=== PATIENT | female | born 1935 | race African-American/Black ===

== ENCOUNTER 2017-04-21 18:53 | Observation (INO) | payer MEDICARE ==
[~2017-04-21] VITALS: Ht 157.5 cm; Wt 41.7 kg
[2017-04-21 19:10] VITALS: BP 162/85
[2017-04-21] MEDS ORDERED: Acetaminophen 650 MG SUPP RECTAL ONE (19:30)
[2017-04-21 19:53] LABS: APPEARANCE,URINE CLEAR; KETONES,URINE NEGATIVE (NEGATIVE); LEUKOCYTE ESTERASE ,URINE 1+ (NEGATIVE); NITRITE,URINE NEGATIVE (NEGATIVE); PH,URINE 7 (4.5-8.0); PROTEIN,URINE NEGATIVE (NEGATIVE); UROBILINOGEN,URINE NORMAL MG/DL (0.0-1.0)
[2017-04-21 20:10] LABS: AMORPHOUS SEDIMENT,UR FEW /LPF; BACTERIA,URINE FEW /HPF; RBC,URINE 0-2 /HPF (0 - 2); SQUAMOUS EPITHELIAL CELL,UR FEW /LPF (NONE/OCC)
[2017-04-21 21:00] VITALS: BP 161/79
[2017-04-21 21:24] LABS: BASOPHILS % (AUTO) 0.5 % (0.0-2.0); EOSINOPHILS % (AUTO) 0.2 % (0.0-3.0); LYMPHOCYTES % (AUTO) 10.8 % (20.0-45.0); MEAN CORPUSCULAR HEMOGLOBIN 28.8 PG (27.0-31.0); MEAN CORPUSCULAR HGB CONC 30.9 G/DL (32.0-36.0); MEAN CORPUSCULAR VOLUME 93 FL (80-99); MEAN PLATELET VOLUME 7.8 FL (6.5-10.1); MONOCYTES % (AUTO) 5.9 % (1.0-10.0); NEUTROPHILS % (AUTO) 82.6 % (45.0-75.0); PLATELET COUNT 189 K/UL (150-450); RED BLOOD COUNT 4.84 M/UL (4.20-5.40); RED CELL DISTRIBUTION WIDTH 13.5 % (11.6-14.8); WHITE BLOOD COUNT 6.7 K/UL (4.8-10.8)
[2017-04-21 21:34] LABS: TROPONIN I < 0.30 ng/mL (<=0.30)
[2017-04-21 21:48] LABS: ALANINE AMINOTRANSFERASE 11 U/L (3-33); ALBUMIN/GLOBULIN RATIO 0.9 (1.0-2.7); ANION GAP 17 (5-15); ASPARTATE AMINO TRANSFERASE 27 U/L (5-40); CALCIUM 9.9 mg/dL (8.6-10.2); CARBON DIOXIDE 22 mEQ/L (20-30); CHLORIDE 98 mEQ/L (98-107); CREATININE 0.5 mg/dL (0.5-0.9); HEMOLYSIS 84; POTASSIUM 4.4 mEQ/L (3.4-4.9); SODIUM 137 mEQ/L (135-145); TOTAL PROTEIN 7.6 g/dL (6.6-8.7)
[2017-04-21 21:55] LABS: CKMB 5.9 ng/mL (< 3.8)
--- NOTE | 2017-04-21 22:51 | Emergency Room Report ---
History of Present Illness General Chief Complaint: Altered Level of Consciousness Source: Family Member, EMS Present Illness HPI 81-year-old female presents ED for evaluation. Per EMS patient comes from home or altered the usual since this morning. Niece called on to state that patient was last seen normal last night. Patient does have dementia. Patient does have low-grade fever of 100.8. No signs of distress. Patient is unable to provide any additional history at this time. No other aggravating relieving factors. No other associated symptoms Allergies: Coded Allergies: No Known Allergies (Unverified , 04/21/17) Patient History Past Medical History: dementia Past Surgical History: none Pertinent Family History: none Social History: Denies: smoking, alcohol use, drug use Now: No Immunizations: UTD Reviewed Nursing Documentation: PMH: Agreed, PSxH: Agreed Nursing Documentation-PMH History Of Psychiatric Problem: Yes - ALZHEIMERS Review of Systems All Other Systems: negative except mentioned in HPI Physical Exam Vital Signs Date Time Temp Pulse Resp B/P (MAP) Pulse Ox O2 Delivery O2 Flow Rate FiO2 04/21/17 19:00 100.8 93 22 162/85 97 Room Air Sp02 EP Interpretation: reviewed, normal General Appearance: no apparent distress, lethargic Head: normocephalic Eyes: bilateral eye normal inspection, bilateral eye PERRL ENT: normal ENT inspection Neck: normal inspection Respiratory: chest non-tender, lungs clear, normal breath sounds, speaking full sentences Cardiovascular #1: regular rate, rhythm, no edema Gastrointestinal: normal bowel sounds, non tender, soft, non-distended, no guarding, no rebound Rectal: deferred Genitourinary: no CVA tenderness Musculoskeletal: normal inspection Neurologic: other - lethargic Psychiatric: other - lethargic Skin: normal inspection Lymphatic: normal inspection Medical Decision Making Diagnostic Impression: Primary Impression: CVA (cerebral vascular accident) Qualified Codes: I63.9 - Cerebral infarction, unspecified Additional Impression: Altered level of consciousness ER Course Hospital Course 81-year-old female presents to ED with altered mental status times one day. History of dementia Differential diagnoses include: GA/unstable angina, UTI, sepsis CVA/TIA Clinical course Patient placed on stretcher. on electronic device monitor. After initial history and physical I ordered labs, EKG, chest x-ray, and CT head labs reviewed- electrolytes ok, troponins negative, no leukocytosis, Hb/Hct stable, UA negative EKG - NSR, no acute changes interpretd by me Chest x-ray- no acute process CT brain - right posterior parietal lobe subacute CVA Given aspirin in ED. I discussed findings with the family. Patient is out of window for thrombolytic therapy and is DO NOT RESUSCITATE, comfort care patient will be admitted to Dr Dougherty. I. I feel this is a highly complex case requiring extensive working including EKG/Rhythm strip, Xray/CT/US, Blood/urine lab work, repeat exams while in ED, and administration of strong opiates/narcotics for pain control, admission to hospital or close patient follow up. Diagnosis - CVA, ALOC admitted to telemetry in serious condition Labs Test 04/21/17 19:30 04/21/17 21:00 Urine Color Pale yellow Urine Appearance Clear Urine pH 7 (4.5-8.0) Urine Specific Fries 1.010 (1.005-1.035) Urine Protein Negative (NEGATIVE) Urine Glucose (UA) 2+ (NEGATIVE) Urine Ketones Negative (NEGATIVE) Urine Occult Blood Negative (NEGATIVE) Urine Nitrite Negative (NEGATIVE) Urine Bilirubin Negative (NEGATIVE) Urine Urobilinogen Normal MG/DL (0.0-1.0) Urine Leukocyte Esterase 1+ (NEGATIVE) Urine RBC 0-2 /HPF (0 - 2) Urine WBC 2-4 /HPF (0 - 2) Urine Squamous Epithelial Cells Few /LPF (NONE/OCC) Urine Amorphous Sediment Few /LPF (NONE) Urine Bacteria Few /HPF (NONE) White Blood Count 6.7 K/UL (4.8-10.8) Red Blood Count 4.84 M/UL (4.20-5.40) Hemoglobin 13.9 G/DL (12.0-16.0) Hematocrit 45.0 % (37.0-47.0) Mean Corpuscular Volume 93 FL (80-99) Mean Corpuscular Hemoglobin 28.8 PG (27.0-31.0) Mean Corpuscular Hemoglobin Concent 30.9 G/DL (32.0-36.0) Red Cell Distribution Width 13.5 % (11.6-14.8) Platelet Count 189 K/UL (150-450) Mean Platelet Volume 7.8 FL (6.5-10.1) Neutrophils (%) (Auto) 82.6 % (45.0-75.0) Lymphocytes (%) (Auto) 10.8 % (20.0-45.0) Monocytes (%) (Auto) 5.9 % (1.0-10.0) Eosinophils (%) (Auto) 0.2 % (0.0-3.0) Basophils (%) (Auto) 0.5 % (0.0-2.0) Sodium Level 137 mEQ/L (135-145) Potassium Level 4.4 mEQ/L (3.4-4.9) Chloride Level 98 mEQ/L (98-107) Carbon Dioxide Level 22 mEQ/L (20-30) Anion Gap 17 (5-15) Blood Urea Nitrogen 7 mg/dL (7-23) Creatinine 0.5 mg/dL (0.5-0.9) Estimat Glomerular Filtration Rate mL/min (>60) Glucose Level 157 mg/dL (74-106) Lactic Acid Level 1.90 mmol/L (0.66-2.22) Calcium Level 9.9 mg/dL (8.6-10.2) Total Bilirubin 0.4 mg/dL (0.0-1.2) Aspartate Amino Transf (AST/SGOT) 27 U/L (5-40) Alanine Aminotransferase (ALT/SGPT) 11 U/L (3-33) Alkaline Phosphatase 63 U/L (35-104) Total Creatine Kinase 373 U/L (26-140) Creatine Kinase MB 5.9 ng/mL (< 3.8) Creatine Kinase MB Relative Index 1.5 Troponin I < 0.30 ng/mL (<=0.30) Pro-B-Type Natriuretic Peptide 326 pg/mL (0-450) Total Protein 7.6 g/dL (6.6-8.7) Albumin 3.7 g/dL (3.5-5.2) Globulin 3.9 g/dL Albumin/Globulin Ratio 0.9 (1.0-2.7) EKG Diagnostic Results Rate: normal Rhythm: NSR ST Segments: no acute changes ASA given to the pt in ED: Yes Rhythm Strip Diag. Results EP Interpretation: yes Rhythm: NSR, no PVC's, no ectopy Chest X-Ray Diagnostic Results Chest X-Ray Diagnostic Results : Chest X-Ray Ordered: Yes # of Views/Limited/Complete: 1 View Indication: Other - ams EP Interpretation: Yes Interpretation: no consolidation, no effusion, no pneumothorax, no acute cardiopulmonary disease Impression: No acute disease Electronically Signed by: Electronically signed by Erick Stern MD CT/MRI/US Diagnostic Results CT/MRI/US Diagnostic Results : Imaging Test Ordered: CT head Impression Subacute CVA right posterior parietal lobe. Last Vital Signs Date Time Temp Pulse Resp B/P (MAP) Pulse Ox O2 Delivery O2 Flow Rate FiO2 04/21/17 19:10 100.8 22 162/85 97 Room Air 04/21/17 19:00 93 Status: improved Disposition: ADMITTED INPATIENT Condition: Serious Referrals: [facility],REFERRING (PCP) ERICK STERN M.D. Apr 21, 2017 22:51
[2017-04-21 23:07] VITALS: BP 154/83
[2017-04-21] MEDS ORDERED: QUETIAPINE FUMA25 MG ORAL (23:31)
[2017-04-22] VITALS: BP 136/64
[2017-04-22] MEDS ORDERED: cefTRIAXone 1 GM in D5W 55 ML IVPB SCH (00:15)
[2017-04-22 04:00] VITALS: BP 127/68
[2017-04-22] MEDS ORDERED: ASPIRIN-LOW81 MG ORAL (08:10)
[2017-04-22] MEDS ORDERED: BACTRIM DS TAB1 EAC1 ORAL (08:10)
[2017-04-22 08:45] VITALS: BP 120/77
--- NOTE | 2017-04-22 08:54 | Diagnostic Imaging Report ---
Indication: Altered mental status Technique: Contiguous 5 mm thick transaxial imaging of the head obtained in a Siemens Sensation [address] scanner. Soft tissue and bone windows generated. Total Dose length Product (DLP): [address] Dose Index Volume (CTDIvol): 70.38, 0.15 mGy Comparison: none Findings: There is an area of abnormal low attenuation in the right posterior parietal lobe involving the cortex and subcortical white matter. Findings probably represent subacute CVA based on the appearance. Please correlate clinically. There is no acute hemorrhage or mass effect. The lateral ventricles are enlarged disproportionate to the degree of atrophy present which is mild to moderate. Which are considered the possibility of normal pressure hydrocephalus. Please correlate clinically. Low attenuation of periventricular white matter is moderate in degree. The osseous structures are unremarkable. Basal cisterns appear normal. Impression: Subacute CVA suspected in the right posterior parietal lobe. Please correlate clinically. Disproportionate ventriculomegaly with mild to moderate atrophy noted. Normal pressure hydrocephalus or communicating hydrocephalus could be present. Clinical evaluation is recommended. I have communicated the preliminary results to the Emergency Department. 20:14, 04/21/[address] scanner at [facility] is accredited by the [employer] and the scans are performed using dose optimization techniques as appropriate to a performed exam including Automatic Exposure control.
--- NOTE | 2017-04-22 10:45 | Diagnostic Imaging Report ---
Indication: Dyspnea Comparison: None A single view chest radiograph was obtained. Findings: Lungs are clear. Bones are moderately osteopenic. The heart is normal in size. Aorta is moderately tortuous and calcified. Impression: No acute findings
[2017-04-22 12:00] VITALS: BP 116/68
--- NOTE | 2017-04-22 19:30 | History and Physical Report ---
DATE OF ADMISSION: 04/21/2017 History of Present Illness: This is an 81-year-old female who is enrolled under hospice. She was brought to the emergency room when the family, particularly her niece, Georgina Paul, felt that she was less responsive than before. Her baseline is that she is nonverbal at home, but would able to be fed with assistance. Yesterday, she was having difficulty swallowing and the family decided to call hospice. Hospice said it would be a while before somebody could get there, and therefore, the niece, Georgina Paul, at [phone] decided to call paramedics. Paramedics brought her to the emergency room. In the emergency room, it is unclear if details regarding hospice were available and the patient was evaluated by ER physician. She was found to have possibly UTI, but a head CT was also done, which showed a possibility of a subacute CVA. The patient was admitted to the hospital. PAST HISTORY: Cognitive impairment and dementia. SURGERIES: None reported. Medications: In the past, she was taking Seroquel. She is no longer taking it at home. There are no home medications. SOCIAL HISTORY: Lives at home with family, is under hospice. PHYSICAL EXAMINATION: GENERAL: An elderly female. Vital Signs: Blood pressure is 140/80, heart rate is 94, respirations 18 and she is afebrile. T-max here was 100. 8 degrees, she has been afebrile since. HEENT: Unremarkable. CHEST: Clear breath sounds bilaterally. ABDOMEN: Soft. EXTREMITIES: There is no edema. Neurologic: Nonfocal, but poorly cooperative. The patient is mostly nonverbal, only able to say yes to me. Laboratory And Diagnostic Data: Lab testing shows normal CBC and BMP. There are few pus cells seen in urinalysis. CT scan discussed above. IMPRESSION: 1. Possible urinary tract infection. 2. Subacute cerebrovascular accident. 3. Hospice patient. 4. Dementia. Discussion: I had a lengthy discussion with the patient's niece, Georgina Paul. She reinforced the patient as DNR/DNI and under hospice. At this time, after discussion, I have decided to discharge the patient home with empiric treatment of Bactrim as well as addition of aspirin. The patient will be up by family and they will contact hospice for either re-enrollment or resumption of care. Xavier Dougherty M.D. DR: TEZ JOB#: [id number] CC:
--- NOTE | 2017-04-25 07:29 | Discharge Summary ---
Discharge Summary Hospital Course Date of Admission Apr 21, 2017 at 20:52 Date of Discharge Apr 22, 2017 at 12:15 Admitting Diagnosis ALTERED MENTAL STATUS HPI Tena Angulo is a 81 year old female who was admitted on Apr 21, 2017 at 20: 52 for Altered Mental Status Hospital Course dc summary #[id number] Discharge Medications New Medications: Aspirin (Aspirin EC) 81 Mg Tablet.dr 81 MG ORAL DAILY for 30 Days, TAB Trimethoprim/Sulfamethoxazole 160/800* (Bactrim Ds Tablet*) 1 Each Tablet 1 TAB ORAL TWICE A DAY for 7 Days, TAB Discontinued Medications: Quetiapine Fumarate* (Seroquel*) 25 Mg Tablet 25 MG ORAL DAILY, TAB Discharge Discharge Disposition Patient was discharged to Home with Hospice (50) Discharge Diagnoses: Discharge Instructions Discharge Instructions Special Instructions I have been assigned to complete a D/C Summary on this account. I was not involved in the patient management Carlee Beauchamp NP (Vanchtein) Apr 25, 2017 07:29
--- NOTE | 2017-04-26 03:30 | Discharge Summary 2 SIG ---
DATE OF ADMISSION: 04/22/2017 DATE OF DISCHARGE: 04/22/2017 REASON FOR ADMISSION: 81-year-old female, who resides at home and was under hospice care with DNR/DNI status, brought in for evaluation, when her niece noted that the patient was less responsive than before. In the emergency department, CT of the head revealed right posterior subacute CVA . Urinalysis showed a possible evidence of urinary tract infection. Vital signs were stable. No leukocytosis. The patient was admitted for further management. Temperature maximum was 100.8 degrees, but since that she was afebrile. ADMITTING DIAGNOSES: 1. Subacute right posterior parietal lobe cerebrovascular accident. 2. Possible urinary tract infection. 3. Dementia. HOSPITAL STAY: The patient was admitted. The patient was evaluated by admitting doctor, who had a lengthy discussion with the patient niece. The niece reinforced that the patient was DNR/DNI status and under hospice care at home. After lengthy discussion, family decided to take the patient home. The patient was started on empiric treatment of Bactrim. Aspirin added to medication regimen. The patient was stable for discharge. Due to unexpected changes in patient condition, the family desired to continue with hospice care, and patient was subsequently discharged in one day. DISCHARGE DIAGNOSES: 1. Subacute right posterior parietal lobe cerebrovascular accident. 2. Possible urinary tract infection. 3. Dementia. 4. Hospice patient. DISCHARGE MEDICATIONS: See medication reconciliation list. DISCHARGE INSTRUCTIONS The patient was discharged home with hospice services. Xavier Dougherty M.D. I have been assigned to dictate discharge summary on this account and I was not involved in the patient's management. Carlee Beauchamp (Vanchtein) N.PRick DR: CHRISTEN JOB#: [id number] CC: JOSE ANTONIO
--- NOTE | 2017-04-28 23:26 | Cardiology Report ---
APPROVED REPORT EKG Measurement Heart [id number] Normal sinus rhythm Nonspecific ST and T wave abnormality Abnormal ECG
== END 2017-04-22 12:15 | disposition hospice, home (50) ==
LOC: EDBD 18:53 → EMR 20:41 → UNDOADMOB 20:52 → 2E 20:52 → INTOOBSV 20:52 → EDBEDREQ 21:16 → 2E 04-22 00:13 → UNDODISOB 04-22 12:15
DX: I63.8 Other cerebral infarction (principal); Z66 Do not resuscitate; R50.9 Fever, unspecified; G30.9 Alzheimer's disease, unspecified; F02.80 Dementia in other diseases classified elsewhere, unspecified severity, without behavioral disturbance, psychotic disturbance, mood disturbance, and anxiety; N39.0 Urinary tract infection, site not specified; M85.80 Other specified disorders of bone density and structure, unspecified site
CPT/HCPCS: 36415; 70450; 71010; 80053; 81003; 82550; 82553; 83605; 83880; 84484; 85025; 87040; 87181; 92610; 93005; 97532; 99285; G0378 ×2; G8996; G8997; J0696